=== PATIENT | male | born 1945 | race Caucasian/White ===

== ENCOUNTER 2022-12-23 05:35 | Inpatient (IN) | payer MEDICARE, OTHER ==
[~2022-12-23] VITALS: Ht 172.7 cm; Wt 95.3 kg
[2022-12-23] MEDS ORDERED: LIDOCAINE 2%-EPI 1:100,000 30 ML VIAL ONE (07:01)
[2022-12-23] MEDS ORDERED: dexaMETHasone SOD PHOSPHATE 10 MG/ML VIAL ONE (07:02)
[2022-12-23] MEDS ORDERED: VANCOMYCIN 1 GM VIAL ONE (07:02)
[2022-12-23] MEDS ORDERED: FENTANYL PF 250MCG/5ML AMPUL ONE (07:20)
[2022-12-23] MEDS ORDERED: LABETALOL HCL IV 100MG VIAL ONE (08:23)
[2022-12-23] MEDS ORDERED: ONDANSETRON HCL/PF 4 MG/2 ML VIAL IV PRN (12:30)
[2022-12-23] MEDS ORDERED: ACETAMINOPHEN 325 MG TABLET PO PRN (12:30)
[2022-12-23] MEDS ORDERED: HYDROMORPHONE 1 MG/1 ML DISP.SYRIN IV PRN (12:30)
[2022-12-23] MEDS ORDERED: IV NS 0.9% 1,000 ML IV PRN (12:30)
[2022-12-23] MEDS ORDERED: TAMS-12 PO (13:12)
[2022-12-23] MEDS ORDERED: LOSA100T31 PO (13:12)
[2022-12-23] MEDS ORDERED: ERGO500093 PO (13:12)
[2022-12-23] MEDS ORDERED: MECL-159 PO (13:12)
[2022-12-23] MEDS ORDERED: NIFE90TA61 PO (13:13)
[2022-12-23] MEDS ORDERED: ATOR10TA PO (13:13)
[2022-12-23] MEDS ORDERED: CARV12.52 PO (13:13)
[2022-12-23] MEDS ORDERED: Z GUARD REMEDY 4 OZ OINT TP PRN (14:30)
[2022-12-23] MEDS ORDERED: MAGNESIUM HYDROXIDE 30 ML UDC PO PRN (14:30)
[2022-12-23] MEDS ORDERED: ZOLPIDEM TARTRATE 5 MG TABLET PO PRN (14:30)
[2022-12-23 15:00] VITALS: BP 150/70; TEMP 99.1; O2SAT 99
[2022-12-23 15:45] VITALS: BP 150/90; TEMP 99; O2SAT 98
[2022-12-23] MEDS ORDERED: MECLIZINE HCL 25 MG TABLET PO PRN (16:00)
[2022-12-23] MEDS: CARVEDILOL 12.5 MG TABLET PO SCH (17:04)
[2022-12-23] MEDS ORDERED: ATORVASTATIN 10 MG TABLET PO SCH (18:00)
[2022-12-23] MEDS: VANCOMYCIN 1 GM in IV D5W 250ml IV SCH (19:36)
[2022-12-23 20:00] VITALS: BP 159/85; TEMP 99.7; O2SAT 98
[2022-12-24 00:48] VITALS: BP 125/67; TEMP 98.4; O2SAT 96
[2022-12-24 04:18] VITALS: BP_SYST 122; TEMP 98.2; O2SAT 99
[2022-12-24 05:55] LABS: HEMATOCRIT 38 % (39-51); HEMOGLOBIN 12.6 g/dL (13.5-17.5); LYMPHOCYTES # (AUTO) 1.3 K/uL (0.8-4.8); LYMPHOCYTES % (AUTO) 10.8 % (20.0-44.0); MEAN CORPUSCULAR HEMOGLOBIN 31 PG (26.0-33.0); MEAN CORPUSCULAR HGB CONC 34 g/dl (31.0-36.0); MEAN CORPUSCULAR VOLUME 92 fL (80-96); MONOCYTES # (AUTO) 0.8 K/uL (0.1-1.30); MONOCYTES % (AUTO) 6.4 % (2.0-12.0); NEUTROPHILS # (AUTO) 10.2 K/uL (1.8-8.9); NEUTROPHILS % (AUTO) 82.8 % (43.0-81.0); PLATELET COUNT (AUTO) 139 K/uL (150-450); RED BLOOD CELL COUNT(AUTO) 4.07 MIL/uL (4.5-6.0); RED CELL DISTRIBUTION WIDTH 13.5 % (11.5-15.0); WHITE BLOOD COUNT (AUTO) 12.4 K/uL (4.3-11.0)
[2022-12-24 06:17] LABS: CALCIUM, SERUM 8.8 mg/dL (8.5-10.1); CREATININE 0.9 mg/dL (0.6-1.3); POTASSIUM 3.8 mmol/L (3.5-5.1)
[2022-12-24] MEDS ORDERED: PANTOPRAZOLE 40 MG TABLET.DR PO SCH (07:30)
[2022-12-24 08:00] VITALS: BP 135/68; TEMP 99; O2SAT 97
[2022-12-24] MEDS: CARVEDILOL 12.5 MG TABLET PO SCH (08:13)
[2022-12-24 08:14] VITALS: BP 135/68
[2022-12-24] MEDS: VANCOMYCIN 1 GM in IV D5W 250ml IV SCH (08:57)
[2022-12-24] MEDS ORDERED: LOSARTAN POTASSIUM 50 MG TABLET PO SCH (09:00)
[2022-12-24] MEDS ORDERED: NIFEdipine XL (30MG) 30 MG TAB PO SCH (09:00)
[2022-12-24] MEDS ORDERED: TAMSULOSIN 0.4 MG CAP.SR.24H PO SCH (09:00)
[2022-12-29] MEDS ORDERED: ERGOCALCIFEROL (VITAMIN D 2) 50,000 UNIT CAPSULE PO SCH (16:00)
== END 2022-12-24 12:05 | disposition home or self-care (01) | DRG 516 ==
LOC: DS 05:35 → MED 05:36 → TELE 13:32
PROVIDERS: ADMIT Nurse Practitioner Family; ATTEND Nurse Practitioner Family
PROC: 0NSV04Z Reposition Left Mandible with Internal Fixation Device, Open Approach (ICD-10-PCS; principal; 2022-12-23)
PROC: 0NUV07Z Supplement Left Mandible with Autologous Tissue Substitute, Open Approach (ICD-10-PCS; 2022-12-23)
PROC: 0NSR04Z Reposition Maxilla with Internal Fixation Device, Open Approach (ICD-10-PCS; 2022-12-23)
PROC: 0NUR07Z Supplement Maxilla with Autologous Tissue Substitute, Open Approach (ICD-10-PCS; 2022-12-23)
PROC: 0NBV0ZX Excision of Left Mandible, Open Approach, Diagnostic (ICD-10-PCS; 2022-12-23)
PROC: 0NST04Z Reposition Right Mandible with Internal Fixation Device, Open Approach (ICD-10-PCS; 2022-12-23)
PROC: 09BQ0ZZ Excision of Right Maxillary Sinus, Open Approach (ICD-10-PCS; 2022-12-23)
PROC: 0NBR0ZX Excision of Maxilla, Open Approach, Diagnostic (ICD-10-PCS; 2022-12-23)
PROC: 0NBT0ZX Excision of Right Mandible, Open Approach, Diagnostic (ICD-10-PCS; 2022-12-23)
DX: M84.48XA Pathological fracture, other site, initial encounter for fracture (principal); S02.609A Fracture of mandible, unspecified, initial encounter for closed fracture; J32.0 Chronic maxillary sinusitis; D72.829 Elevated white blood cell count, unspecified; I10 Essential (primary) hypertension; M27.2 Inflammatory conditions of jaws; X58.XXXA Exposure to other specified factors, initial encounter; Y93.9 Activity, unspecified; Y92.89 Other specified places as the place of occurrence of the external cause; D16.5 Benign neoplasm of lower jaw bone; M27.40 Unspecified cyst of jaw
CPT/HCPCS: 36415; 80048-TC; 82962-TC; 85025-TC; A4223; G0378; J0461; J0690; J1100; J2704; J3010; J3370; J3490; J7030; J7060

== ENCOUNTER 2023-05-12 05:56 | Inpatient (IN) | payer MEDICARE, OTHER ==
[~2023-05-12] VITALS: Ht 177.8 cm; Wt 94.4 kg
[~2023-05-12 05:56] MED LIST: ATOR10TA PO; CARV12.52 PO; ERGO500093 PO; LOSA100T31 PO; MECL-159 PO; NIFE90TA61 PO; TAMS-12 PO
[2023-05-12] MEDS ORDERED: LIDOCAINE 2%-EPI 1:100,000 30 ML VIAL ONE (06:57)
[2023-05-12] MEDS ORDERED: VANCOMYCIN 1 GM VIAL ONE (06:57)
[2023-05-12] MEDS ORDERED: dexaMETHasone SOD PHOSPHATE 2 ML ONE (06:57)
[2023-05-12] MEDS ORDERED: ROCURONIUM BROMIDE 50 MG/5 ML ONE (07:15)
[2023-05-12] MEDS ORDERED: FENTANYL PF 250MCG/5ML AMPUL ONE (07:15)
[2023-05-12 07:19] VITALS: BP 124/64; TEMP 97.9; O2SAT 97
[2023-05-12] MEDS ORDERED: LABETALOL HCL IV 100MG VIAL ONE (08:04)
[2023-05-12] MEDS ORDERED: DONE5TAB34 PO (10:16)
[2023-05-12] MEDS ORDERED: ASPI-1420 PO (10:16)
[2023-05-12 11:00] VITALS: BP 148/72; TEMP 98; O2SAT 96
[2023-05-12] MEDS ORDERED: ACETAMINOPHEN 325 MG TABLET PO PRN (12:00)
[2023-05-12] MEDS ORDERED: IV NS 0.9% 1,000 ML IV PRN (12:00)
[2023-05-12] MEDS ORDERED: HYDROMORPHONE 1 MG/1 ML DISP.SYRIN IV PRN (12:00)
[2023-05-12] MEDS ORDERED: ONDANSETRON HCL/PF 4 MG/2 ML VIAL IVP PRN (12:00)
[2023-05-12 16:20] VITALS: BP 140/74; TEMP 97.7; O2SAT 95
[2023-05-12] MEDS ORDERED: ATORVASTATIN 10 MG TABLET PO SCH (18:00)
[2023-05-12] MEDS ORDERED: MECLIZINE HCL 25 MG TABLET PO PRN (18:00)
[2023-05-12] MEDS: VANCOMYCIN 1 GM in IV D5W 250ml IV SCH (19:56)
[2023-05-12 20:00] VITALS: BP 134/70; TEMP 99; O2SAT 95
[2023-05-13 08:00] VITALS: BP 129/71; TEMP 98.1; O2SAT 97
[2023-05-13] MEDS ORDERED: CARVEDILOL 12.5 MG TABLET PO SCH (09:00)
[2023-05-13] MEDS ORDERED: LOSARTAN POTASSIUM 50 MG TABLET PO SCH (09:00)
[2023-05-13] MEDS ORDERED: ASPIRIN EC 81 MG TABLET.DR PO SCH (09:00)
[2023-05-13] MEDS ORDERED: NIFEdipine XL (30MG) 30 MG TAB PO SCH (09:00)
[2023-05-13] MEDS ORDERED: TAMSULOSIN 0.4 MG CAP.SR.24H PO SCH (09:00)
[2023-05-13] MEDS ORDERED: DONEPEZIL 5 MG TABLET PO SCH (09:00)
[2023-05-13] MEDS: VANCOMYCIN 1 GM in IV D5W 250ml IV SCH (09:21)
[2023-05-13 09:23] VITALS: BP 129/71
[2023-05-13] MEDS ORDERED: ACET325T53 PO (11:58)
[2023-05-13] MEDS ORDERED: AMOX500C2 PO (11:58)
[2023-05-17] MEDS ORDERED: ERGOCALCIFEROL (VITAMIN D 2) 50,000 UNIT CAPSULE PO SCH (18:00)
== END 2023-05-13 12:00 | disposition home or self-care (01) | DRG 496 ==
LOC: DS 05:56 → MED 05:57
PROVIDERS: ADMIT Dentist Oral and Maxillofacial Surgery; ATTEND Dentist Oral and Maxillofacial Surgery
PROC: 0NUR07Z Supplement Maxilla with Autologous Tissue Substitute, Open Approach (ICD-10-PCS; principal; 2023-05-12)
PROC: 0NSR04Z Reposition Maxilla with Internal Fixation Device, Open Approach (ICD-10-PCS; principal; 2023-05-12)
PROC: 0NPW04Z Removal of Internal Fixation Device from Facial Bone, Open Approach (ICD-10-PCS; principal; 2023-05-12)
PROC: 0NPW0JZ Removal of Synthetic Substitute from Facial Bone, Open Approach (ICD-10-PCS; principal; 2023-05-12)
PROC: 0NBT0ZX Excision of Right Mandible, Open Approach, Diagnostic (ICD-10-PCS; principal; 2023-05-12)
PROC: 0WC50ZZ Extirpation of Matter from Lower Jaw, Open Approach (ICD-10-PCS; principal; 2023-05-12)
DX: T84.69XA Infection and inflammatory reaction due to internal fixation device of other site, initial encounter (principal); S02.40CK Maxillary fracture, right side, subsequent encounter for fracture with nonunion; T86.831 Bone graft failure; S02.609K Fracture of mandible, unspecified, subsequent encounter for fracture with nonunion; X58.XXXA Exposure to other specified factors, initial encounter; E78.5 Hyperlipidemia, unspecified; F03.90 Unspecified dementia, unspecified severity, without behavioral disturbance, psychotic disturbance, mood disturbance, and anxiety; F17.210 Nicotine dependence, cigarettes, uncomplicated; I10 Essential (primary) hypertension; I70.0 Atherosclerosis of aorta; N40.0 Benign prostatic hyperplasia without lower urinary tract symptoms; R73.03 Prediabetes; Y83.2 Surgical operation with anastomosis, bypass or graft as the cause of abnormal reaction of the patient, or of later complication, without mention of misadventure at the time of the procedure; D16.4 Benign neoplasm of bones of skull and face; M89.38 Hypertrophy of bone, other site
CPT/HCPCS: 82962-TC; 87081-TC; 88305-TC; 88311-TC; 88312-TC; A4223; C1713; G0378; J0461; J0690; J1100; J1885; J2704; J3010; J3370; J3490; J7030; J7060

== ENCOUNTER 2024-08-02 06:33 | Inpatient (IN) | payer MEDICARE, OTHER ==
[~2024-08-02] VITALS: Ht 172.7 cm; Wt 95.3 kg
[~2024-08-02 06:33] MED LIST changes: +ACET325T53 PO; +AMOX500C2 PO; +ASPI-1420 PO; +DONE5TAB34 PO
[2024-08-02] MEDS ORDERED: dexaMETHasone SOD PHOSPHATE 2 ML ONE (06:46)
[2024-08-02] MEDS ORDERED: LIDOCAINE 2%-EPI 1:100,000 30 ML VIAL ONE (06:46)
[2024-08-02] MEDS ORDERED: VANCOMYCIN 1 GM VIAL ONE (06:47)
[2024-08-02] MEDS ORDERED: OXYMETAZOLINE HCL NASAL SPRAY 30 ML BOTTLE NS ONE (06:47)
[2024-08-02] MEDS ORDERED: FENTANYL PF 250MCG/5ML AMPUL ONE (07:17)
[2024-08-02] MEDS ORDERED: ROCURONIUM BROMIDE 50 MG/5 ML ONE (07:19)
[2024-08-02] MEDS ORDERED: HYDROMORPHONE INJ 2 MG/ML DISP.SYRIN IV PRN (10:30)
[2024-08-02] MEDS ORDERED: ACETAMINOPHEN 325 MG TABLET PO PRN (10:30)
[2024-08-02] MEDS ORDERED: ONDANSETRON HCL/PF 4 MG/2 ML VIAL IV PRN (10:30)
[2024-08-02] MEDS ORDERED: IV NS 0.9% 1,000 ML IV PRN (10:30)
[2024-08-02] MEDS ORDERED: MECLIZINE HCL 25 MG TABLET PO PRN (13:00)
[2024-08-02] MEDS: NIFEdipine XL (30MG) 30 MG TAB PO SCH (13:09)
[2024-08-02] MEDS: TAMSULOSIN 0.4 MG CAP.SR.24H PO SCH (13:09)
[2024-08-02] MEDS: DONEPEZIL 5 MG TABLET PO SCH (13:09)
[2024-08-02] MEDS: CARVEDILOL 12.5 MG TABLET PO SCH (13:10)
[2024-08-02] MEDS: LOSARTAN POTASSIUM 50 MG TABLET PO SCH (13:10)
[2024-08-02 16:00] VITALS: BP 120/64; TEMP 97.7; O2SAT 94
[2024-08-02] MEDS: ATORVASTATIN 10 MG TABLET PO SCH (17:15)
[2024-08-02] MEDS: VANCOMYCIN 1 GM in IV D5W 250ml IV SCH (20:01)
[2024-08-02 20:35] VITALS: BP 120/67; TEMP 98.2; O2SAT 94
[2024-08-03 08:30] VITALS: BP 122/56; TEMP 97.5; O2SAT 97
[2024-08-07] MEDS ORDERED: ERGOCALCIFEROL (VITAMIN D 2) 50,000 UNIT CAPSULE PO SCH (13:00)
== END 2024-08-03 12:00 | disposition home or self-care (01) | DRG 141 ==
LOC: DS 06:33 → MED 09:45
PROVIDERS: ADMIT Nurse Practitioner Acute Care; ATTEND Nurse Practitioner Acute Care
PROC: 0NUR07Z Supplement Maxilla with Autologous Tissue Substitute, Open Approach (ICD-10-PCS; principal; 2024-08-02 07:30)
PROC: 0N5R0ZZ Destruction of Maxilla, Open Approach (ICD-10-PCS; principal; 2024-08-02 07:30)
PROC: 0NSR04Z Reposition Maxilla with Internal Fixation Device, Open Approach (ICD-10-PCS; principal; 2024-08-02 07:30)
DX: S02.411B LeFort I fracture, initial encounter for open fracture (principal); M96.89 Other intraoperative and postprocedural complications and disorders of the musculoskeletal system; S07.0XXA Crushing injury of face, initial encounter; X58.XXXA Exposure to other specified factors, initial encounter; Y93.9 Activity, unspecified; Y92.89 Other specified places as the place of occurrence of the external cause; D16.4 Benign neoplasm of bones of skull and face; M27.40 Unspecified cyst of jaw; M89.8X8 Other specified disorders of bone, other site; E78.5 Hyperlipidemia, unspecified; F17.210 Nicotine dependence, cigarettes, uncomplicated; I10 Essential (primary) hypertension; R73.03 Prediabetes; Z79.899 Other long term (current) drug therapy; F03.90 Unspecified dementia, unspecified severity, without behavioral disturbance, psychotic disturbance, mood disturbance, and anxiety; N40.0 Benign prostatic hyperplasia without lower urinary tract symptoms
CPT/HCPCS: 88305-TC; 88311-TC; A4223; A4338; C1713; G0378; J0360; J0461; J0690; J1100; J2704; J3010; J3370; J3490; J7030; J7060